=== PATIENT | female | born 1955 | race Caucasian/White ===

== ENCOUNTER 2016-12-04 08:01 | Emergency (ER) | payer BC ==
[~2016-12-04] VITALS: Ht 162.6 cm; Wt 70.3 kg
[2016-12-04 08:15] VITALS: BP 116/72
[2016-12-04] MEDS ORDERED: IBUPROFEN600 MG ORAL (09:15)
[2016-12-04 09:30] VITALS: BP 116/72
--- NOTE | 2016-12-04 10:44 | Emergency Room Report ---
History of Present Illness General Chief Complaint: Pain Source: Patient Present Illness HPI [id number] [employer] patient with pain to left big toe after accidentally twisting it while walking at home States previous "fusion of bones" of left big toe previously Hasnt taken OTC meds Applying ice No other injury Allergies: Coded Allergies: PENICILLINS (Verified Allergy, Unknown, 12/04/16) Patient History Past Medical History: none Past Surgical History: none Pertinent Family History: none Social History: Denies: alcohol use, drug use, smoking Now: No Immunizations: UTD Reviewed Nursing Documentation: PMH: Agreed, PSxH: Agreed Nursing Documentation-PMH Hx Hypertension: Yes - OSTEOPOROSIS Review of Systems All Other Systems: negative except mentioned in HPI Physical Exam Vital Signs Date Time Temp Pulse Resp B/P Pulse Ox O2 Delivery O2 Flow Rate FiO2 12/04/16 08:05 97.7 87 15 116/72 99 Room Air Sp02 EP Interpretation: reviewed, normal General Appearance: normal inspection, well appearing, no apparent distress, alert Head: atraumatic ENT: normal ENT inspection, hearing grossly normal, normal voice Neck: normal inspection, full range of motion, supple, no bony tend Respiratory: normal inspection, lungs clear, normal breath sounds, no respiratory distress, no retraction, no wheezing Cardiovascular #1: regular rate, rhythm, no edema Gastrointestinal: normal inspection, normal bowel sounds, non tender, soft, no guarding, no hernia Genitourinary: no CVA tenderness Musculoskeletal: normal inspection, back normal, normal range of motion, Henry' s Sign negative, other - left foot: No obvious deformity or swelling. Mild ttp to prox phalange. 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, speech normal Psychiatric: normal inspection, judgement/insight normal, mood/affect normal Skin: normal inspection, normal color, no rash Medical Decision Making Diagnostic Impression: Primary Impression: Toe fracture, left Qualified Codes: S92.415A - Nondisplaced fracture of proximal phalanx of left great toe, initial encounter for closed fracture ER Course Acute left big toe fx Analgesia given ICE applied Walking boot given Advised non-weight bearing, RICE, NSAIDS, PMD followup DC home Other X-Ray Diagnostic Results Other X-Ray Diagnostic Results : X-Ray ordered: Right foot # of Views/Limited Vs Complete: 3 View EP Interpretation: Yes Interpretation: no dislocation, no soft tissue swelling, other - acute fracture prox phalange of left big toe Last Vital Signs Date Time Temp Pulse Resp B/P Pulse Ox O2 Delivery O2 Flow Rate FiO2 12/04/16 09:30 97.7 87 15 116/72 99 Room Air Status: improved Disposition: HOME, SELF-CARE Condition: Improved Scripts Ibuprofen* (MOTRIN*) 600 Mg Tablet 600 MG ORAL THREE TIMES A DAY for For Pain for 7 Days, #30 TAB 0 Refills Prov: GARDENIA NAVARRO M.D. 12/04/16 Referrals: NON PHYSICIAN (PCP) Patient Instructions: Toe Fracture, [id number] Additional Instructions: - Keep boot on for support - Take ibuprofen with food up to 3x a day for pain - Ice 3-4x a day - Follow up with primary care doctor for orthopedics or podiatry referral GARDENIA NAVARRO M.D. Dec 04, 2016 10:44
--- NOTE | 2016-12-05 09:37 | Diagnostic Imaging Report ---
Indication: Pain Comparison: None Findings: 3 views of the left foot were obtained. There is a comminuted intra-articular fracture of the first proximal phalange extending into the interphalangeal joint. There is an old fracture well-healed involving the fifth metatarsal bone. Bones are osteopenic. Stigmata of previous bunionectomy noted in the first MTP region. Impression: Acute fracture of the first proximal phalange
== END 2016-12-04 09:30 | disposition home or self-care (01) ==
LOC: EMR 08:25
DX: S92.415A Nondisplaced fracture of proximal phalanx of left great toe, initial encounter for closed fracture (principal); I10 Essential (primary) hypertension; M81.0 Age-related osteoporosis without current pathological fracture; Z88.0 Allergy status to penicillin; X50.1XXA Overexertion from prolonged static or awkward postures, initial encounter; Y93.01 Activity, walking, marching and hiking; Y92.009 Unspecified place in unspecified non-institutional (private) residence as the place of occurrence of the external cause
CPT/HCPCS: 99283